=== PATIENT | female | born 1990 | race Caucasian/White ===

== ENCOUNTER 2016-08-06 12:36 | Emergency (ER) | payer OTHER ==
[~2016-08-06] VITALS: Ht 180.3 cm; Wt 100.0 kg
[2016-08-06 12:37] VITALS: BP 169/103; PULSE 111; RESP 17; TEMP 98.1; O2SAT 99
--- NOTE | 2016-08-06 12:47 | PD ---
HPI . right wrist and hand pain since earlier today Chief Complaint: Injury Time Seen by Provider: 12:47 Travel History International Travel<30 days: No Contact w/Intl Traveler<30days: No Traveled to known affect area: No History of Present Illness HPI 25-year-old female with no past medical history here with complaints of right hand and wrist pain since earlier today. Patient she was out on her balcony smoking when she tried to get up and use her right hand and heard a bunch of cracking. She is now complaining of 7/10 pain in the right wrist, thumb and index finger. She has decreased analyst market intelligence strength and is unable to move her right hand secondary pain. She is right handed dominant. [facility] Past Medical History Medical History: Denies Significant Hx ?: Unknown Social History Alcohol Use: No Tobacco Use: Yes Substance Use: No Allergies-Medications (Allergen,Severity, Reaction): Coded Allergies: Amoxicillin (Verified Allergy, Unknown, 08/06/16) Bees (Verified Allergy, Unknown, 08/06/16) Codeine (Verified Allergy, Unknown, 08/06/16) Penicillin (Verified Allergy, Unknown, 08/06/16) Sulfa (Verified Allergy, Unknown, 08/06/16) Reported Meds & Prescriptions Reported Meds & Active Scripts Active No Active Prescriptions or Reported Medications Review of Systems General / Constitutional: No: Fever Eyes: No: Visual changes HENT: No: Headaches Cardiovascular: No: Chest Pain or Discomfort Respiratory: No: Shortness of Breath Gastrointestinal: No: Abdominal Pain Genitourinary: No: Dysuria Musculoskeletal: Positive: Pain (right wrist and hand) Skin: No Rash Neurologic: No: Weakness Psychiatric: No: Depression Endocrine: No: Polydipsia Hematologic/Lymphatic: No: Easy Bruising Physical Exam Narrative GENERAL: AAO x 3, no acute distress, Well-nourished, well-developed patient. SKIN: Warm and dry. No visible rashes or bruising. HEAD: Normocephalic and atraumatic. EYES: No scleral icterus. No injection or drainage. ENT: No nasal drainage noted. Airway patent. NECK: Supple, trachea midline. No JVD. CARDIOVASCULAR: Regular rate and rhythm without murmurs, gallops, or rubs. HR on exam 102 RESPIRATORY: Breath sounds equal bilaterally. No accessory muscle use. No rhonchi or rales. GASTROINTESTINAL: Visual inspection normal EXTREMITIES: No cyanosis or edema. right hand with tenderness along distal radius, thumb and index finger, no ecchymosis, decreased analyst market intelligence strength due to pain. decreased ROM of thumb and index finger. BACK: Nontender without obvious deformity. No CVA tenderness. PSYCH: AAO x 3, normal affect. Data Data Last Documented VS Vital Signs Date Time Temp Pulse Resp B/P Pulse Ox O2 Delivery O2 Flow Rate FiO2 08/06/16 13:54 Room Air 08/06/16 12:37 98.1 111 17 169/103 99 Orders Hand, Complete ([id number]) (08/06/16 12:51) Wrist, Complete ([id number]) (08/06/16 12:51) Ibuprofen (Motrin) (08/06/16 13:00) MDM Medical Decision Making Medical Screen Exam Complete: Yes Emergency Medical Condition: Yes Medical Record Reviewed: Yes Differential Diagnosis wrist sprain, fracture, tendinitis Narrative Course 25-year-old female with no past medical history here with complaints of right hand and wrist pain since earlier today. Patient she was out on her balcony smoking when she tried to get up and use her right hand and heard a bunch of cracking. She is now complaining of 7/10 pain in the right wrist, thumb and index finger. She has decreased analyst market intelligence strength and is unable to move her right hand secondary pain. She is right handed dominant. Patient seen and examined. She has some point tenderness to her right distal radius, thumb and index finger. Xrays ordered and negative Provided janny wrap. Advised f/u with PCP. Patient verbalized understanding of instructions, questions were answered, and thanked me for their care. I advised them if their condition worsens, please return to the nearest emergency room for further care. Diagnosis Primary Impression: Hand pain, right Patient Instructions: General Instructions Additional Instructions: Rest the affected area as much as possible. Do this for 1-2 days Ice this area for 15-20 minutes at a time. You can do this every hour or as much as tolerated. Keep this area compressed (janny bandage) as tolerated. Elevate this area. Use ibuprofen as needed for pain and inflammation. Please return to emergency department if your symptoms return or worsen. Follow up with your primary care provider. Take medications as prescribed. Scripts No Active Prescriptions or Reported Meds Disposition: 01 DISCHARGE HOME Condition: Stable Mangali,Claudia PA August 06, 2016 12:47
[2016-08-06] MEDS ORDERED: IBUPROFEN 800 MG TAB PO ONE (13:00)
--- NOTE | 2016-08-06 13:28 | RADRPT ---
EXAM DATE/TIME: 08/06/2016 13:09 [facility] COMPARISON: No previous studies available for comparison. INDICATIONS : Fell on hand pain 4th and 5th metacarpals. Prior ORIF 2 years ago. MEDICAL HISTORY : None. SURGICAL HISTORY : ORIF 4th metacarpal ENCOUNTER: Initial ACUITY: 2 days PAIN SCORE: 9/10 LOCATION: Right hand FINDINGS: There is evidence for a previous surgical repair about the 4th metacarpal. Alignment is anatomic. CONCLUSION: Anatomic alignment, negative for fracture. Kenny Valadez MD FACR on August 06, 2016 at 13:19 Board Certified Radiologist. This report was verified electronically.
--- NOTE | 2016-08-06 13:30 | RADRPT ---
EXAM DATE/TIME: 08/06/2016 13:11 [facility] COMPARISON: No previous studies available for comparison. INDICATIONS : Pain lateral wrist. MEDICAL HISTORY : None. SURGICAL HISTORY : None. ENCOUNTER: Initial ACUITY: 2 days PAIN SCORE: 7/10 LOCATION: Right wrist FINDINGS: Evidence for previous surgery is seen about the 4th metacarpal. No other fractures are appreciated. Alignment is anatomic. CONCLUSION: Evidence for previous surgery 4th metacarpal, otherwise negative. Kenny Valadez MD FACR on August 06, 2016 at 13:19 Board Certified Radiologist. This report was verified electronically.
== END 2016-08-06 13:53 | disposition home or self-care (01) ==
LOC: NEPK 12:36
DX: M79.641 Pain in right hand (principal); Z72.0 Tobacco use
CPT/HCPCS: 73110; 73130; 99283